=== PATIENT | female | born 1990 | race Caucasian/White ===

== ENCOUNTER 2023-04-03 08:08 | Outpatient (AMB) | payer OTHER, SELFPAY ==
--- NOTE | 2023-04-03 08:22 | MHC.OFFVIS ---
Intake Vital Signs 04/03/23 08:28 Height 5 ft 2 in Weight 73 lb BMI 13.4 BP 114/78 Blood Pressure Location Rt brachial Position Sitting Pulse 48 L Pulse Source Pulse Oximeter Pulse Oximetry (%) 100 Oxygen Delivery Method Room Air Intake Visit Reasons: CHRONIC BACK PAIN Intake Note: Mia comes in today for back pain states that it starts in mid back and will radiate up to bilateral shoulders. Pain has been going on for the last 2 years. Currently takes tylenol/ ibuprofen as needed which she feels does not really help. Has tried physical therapy which felt like it made the pain worse. Has never had any injections, Pain today 6/10. Customer Assistance Associate Required: No Accompanied by: Self / Same As Patient Allergies cefaclor [From [facility]] Allergy (Unknown, Verified 04/03/23 08:27) Hives HPI HPI Comments History of Present Illness Details Mia is a very pleasant 32 year old female who presents to the office today for evaluation and management of her chronic lower back pain. Patient reports 2 years of thoracic back pain with some radiation to upper back. Pain today is 6/10, constant, throughout back coming from my spine . She suffers with anorexia nervosa which resulted in osteoporosis. She has a history of thoracic compression fractures, rib fractures and clavicle fracture secondary to the osteoporosis. She is unsure about date of last bone density scan or recent imaging of her back. Earlier this year she was evaluated at [facility] with referral to PT, she attempted but it made the pain worse. She continues with home exercise program. She takes otc NSAIDs and Tylenol daily without relief and has tried topical lidocaine patches that did not help. She currently takes calcium, vitamin D and hormone replacement to treat osteoporosis. She does smoke 6 cigarettes daily. When asked about the status of her eating disorder she states it's ok . Her weight today is down from her PCP visit less than a week ago. Patient is aware that her back pain is a direct result of her AN and associated osteoporosis. Her AN is managed by a outpatient psychiatrist that she is in contact with. In terms of tissue damage condition is described as aching, spasming, shooting, throbbing, tiring, exhausting, stabbing and sharp. Pain is negatively impacting her enjoyment of life, general activity, mood, normal work, recreational activities, sleep, walking and relationships with people. [facility] Medical History (Updated 04/03/23 @ 09:09 by Vilma Bullard, MORTGAGE LOAN ASSISTANT, GAS STATION MANAGER) Anemia Anorexia nervosa Chronic back pain Eating disorder Hyponatremia Osteoporosis Social History (Updated 04/03/23 @ 08:30 by Janneth Rehman) Alcohol intake: current Alcohol intake frequency: holidays/special occasions only Patient Tobacco Use Status: Current everyday Tobacco user Tobacco use type: Cigarette Cigarettes Per Day: 6 Substance Use Type: Caffiene Substance Use Type Other:: 2-3 cups Review of Systems Const All systems reviewed & are unremarkable except as noted in HPI and below Physical Exam Vital Signs: Last Vital Signs Pulse 48 L 04/03/23 08:28 BP 114/78 04/03/23 08:28 Pulse Ox 100 04/03/23 08:28 Oxygen Delivery Method Room Air 04/03/23 08:28 BMI result Body Mass Index 13.4 General: awake, alert, oriented. Answers questions appropriately. Malnourished appearing, frail. Skin: warm, dry, intact HEENT: Normocephalic. Hearing intact. Cardiac: External chest normal in appearance. Respiratory: No signs of respiratory distress. No cough, audible wheezing or stridor. Abdomen: without gross distension. MS: Kyphosis Tender to palpation midline thoracic vertebrae and thoracic paraspinal muscles. Able to transition from sit to stand unassisted. Ambulates with bilaterally normal heel strike and toe off Neurological: Oriented to person, place, time and situation. Thought process intact. No gait abnormalities appreciated. Psychiatric: Appropriate mood and affect. Good judgment and insight. 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 Patient with PMH significant for anorexia nervosa, osteoporosis, tobacco use disorder and history of multiple non-traumatic fractures. Discussed options for treatment with patient today. Given patient's history, injections/steroids are contraindicated. Will update imaging including DEXA scan to determine current status of her osteoporosis. XRays of thoracic and lumbar ordered for evaluation Compound topical cream sent to mail order pharmacy, patient instructed on use. C/W home exercise program Advised patient to follow up with PCP and outpatient psychiatrist to discuss recent weight loss and address current struggles with her eating disorder. Patient will follow up in the office after DEXA scan and xrays to review results and amend care plan based on findings. All questions and concerns have been answered and patient agrees with the plan. Orders: Orders XR DEXA axial skeleton Today F50.00 - Anorexia nervosa, unspecified, M81.0 - Age-related osteoporosis without current pathological fracture, Z87.81 - Personal history of (healed) traumatic fracture XR lumbar spine 4V min Today M81.0 - Age-related osteoporosis without current pathological fracture, Z87.81 - Personal history of (healed) traumatic fracture XR thoracic spine 3V Today M81.0 - Age-related osteoporosis without current pathological fracture, Z87.81 - Personal history of (healed) traumatic fracture Medications: New cream base no.105 (bulk) (Base W301 cream) Baclofen 5%, Ketoprofen 10%, Cyclobenzaprine 2%, Bupivicane 2%. 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
[2023-04-03 08:28] VITALS: BP 114/78; PULSE 48; O2SAT 100; BMI 13.4
== END 2023-04-03 08:51 | disposition home or self-care (01) ==
PROVIDERS: PCP Physician Assistant; Visit Provider Registered Nurse Emergency
DX: M81.0 Age-related osteoporosis without current pathological fracture (principal); Z87.81 Personal history of (healed) traumatic fracture; M40.10 Other secondary kyphosis, site unspecified; F50.00 Anorexia nervosa, unspecified
CPT/HCPCS: 99204

== ENCOUNTER → 2023-04-03 08:08 | Outpatient (BNVA) | payer OTHER, SELFPAY | PROVIDERS: PCP Physician Assistant; Visit Provider Registered Nurse Emergency | DX: M81.0 Age-related osteoporosis without current pathological fracture (principal); M40.10 Other secondary kyphosis, site unspecified; F50.00 Anorexia nervosa, unspecified; Z87.81 Personal history of (healed) traumatic fracture | CPT/HCPCS: 99202 ==